=== PATIENT | female | born 1935 | race Caucasian/White ===

== ENCOUNTER 2018-01-08 10:23 | Inpatient (IN) | payer OTHER ==
[~2018-01-08] VITALS: Ht 162.6 cm; Wt 49.9 kg
--- NOTE | ~2018-01-08 | EKG ---
[address] [address] [place] [address] ELECTROCARDIOGRAM REPORT Name: ADRIANO BENJAMIN Room #: 407-P ADM IN M.R.#: [id number] Admission: 01/08/18 Attend Phys: Yves Mariee MD Discharge: Date of : 31 Report #: [id number] THIS REPORT FOR: //name// [facility] ED Test Date: 2018-01-08 Test Time: 11:49:37 Pat Name: ADRIANO BENJAMIN Department: Room: [facility] Gender: F Information Director: CLEVE : 1935 Requested By: Miguel Bullock Order Number: [id number] MD: Gibran Mata Measurements Intervals [place] Rate: 93 P: 74 [place]: 191 QRS: 27 QRSD: 112 T: 34 QT: 354 QTc: 441 Interpretive Statements Sinus arrhythmia Biatrial enlargement Poor R-wave progression Borderline low voltage, extremity leads Nonspecific ST segment abnormalities No previous ECG available for comparison Electronically Signed On 01-09-2018 12:19:36 POWER TECHNICIAN by Gibran Mata [email or web address] <ELECTRONICALLY SIGNED> By: Gibran Mata MD 01/09/18 1219 1149 1149 Gibran Mata MD /CHANELL
--- NOTE | ~2018-01-08 | O ---
[facility] [place] [address] OPERATIVE REPORT Name: ADRIANO BENJAMIN Room #: 407-P [facility] IN .R.#: [id number] Admission: 01/08/18 Attend Phys: Yves Mariee MD Discharge: Date of : 31 Report #: [id number] THIS REPORT FOR: //name// CC: Yves Menjivarpretty Fajardo DATE OF SERVICE: 01/09/2018 PREOPERATIVE DIAGNOSIS: Left femoral neck fracture. POSTOPERATIVE DIAGNOSIS: Left femoral neck fracture. PROCEDURE: Left proximal femoral hemiarthroplasty. SURGEON: Anjel Rodríguez MD INDICATIONS: This frail, but still independent 82-year-old female lives at home with some occasional family assistance. She fell injuring the left hip. X-rays confirm a displaced and unstable femoral neck fracture. We have elected to go ahead with surgical repair using a cemented hemiarthroplasty. DESCRIPTION OF PROCEDURE: The patient was taken to the operating room where she was placed under general anesthesia. Prophylactic intravenous antibiotics were administered. She was turned to the right lateral decubitus position. The left hip, thigh and leg were meticulously prepped and draped. A slightly curving posterolateral skin incision was made and carried through fascia to expose the posterior aspect of the hip joint. The short external rotators were taken down and tagged with several #1 Tevdek sutures. The hip was dislocated and an obvious unstable femoral neck fracture was identified. The neck was trimmed down to an appropriate level. The acetabulum was inspected and found to be intact without any evidence of fracture and only moderate degenerative cartilage damage. The canal was opened with reamers and hand broaches. The Monge and Nephew Hip System was utilized, a size 10 cemented stem seemed to fit most appropriately. A trial reduction was performed and a -3 mm neck length with a 48 mm head size seemed to fit most appropriately. With these trial components in position, the hip demonstrated good alignment, range of motion and stability. The trial components were removed. The femoral canal was once again irrigated. A cement restrictor was placed. Methyl methacrylate cement was mixed and injected into the canal. The Monge and Nephew size 10 collared, cemented, femoral component was selected. This was inserted, positioning this in about 20 degrees of anteversion, it was held securely as the cement hardened. A unipolar femoral head was then applied using a 48 mm head size and a -3 mm neck length. The hip was once again reduced and alignment, range of motion, stability and leg lengths were once again assessed and felt to be satisfactory. The short external rotators and capsule were repaired back using the #1 Tevdek sutures placed through small drill holes in the greater trochanter. This resulted in [facility] [address] [place] [address] OPERATIVE REPORT Name: ADRIANO BENJAMIN Room #: 407-P [facility] IN ..#: [id number] Admission: 01/08/18 Attend Phys: Yves Mariee MD Discharge: Date of : 33 Report #: [id number] significant improvement in overall hip stability. At this point, good hemostasis was noted and I did not feel a Hemovac drain was necessary. The wound was copiously irrigated. The fascia was then closed with multiple #1 Vicryl sutures. The subcutaneous tissues were closed with 0 Monocryl. The skin was closed with skin nat. A sterile dressing was applied. The patient was awakened and returned to recovery room in good condition. <ELECTRONICALLY SIGNED> By: Anjel Rodríguez MD 01/10/18 1035 1139 1216 Anjel Rodríguez MD /nt
--- NOTE | ~2018-01-08 | HC ---
[facility] [place] [address] CONSULTATION Name: ADRIANO BENJAMIN Room #: 407-P [facility] IN ..#: [id number] Admission: 01/08/18 Attend Phys: Yves Mariee MD Discharge: 01/13/18 Date of : 33 Report #: [id number] THIS REPORT FOR: //name// CC: Yves Mariee Kyle Fajardo DATE OF SERVICE: 01/12/2018 HISTORY OF PRESENT ILLNESS: An 82-year-old white female with history of hypertension, had a fall sustaining a left femoral neck fracture. She was noted to have rhabdomyolysis. She had confusion and some electrolyte abnormalities. She was noted to have a left proximal femoral neck fracture and underwent a hemiarthroplasty on 01/09/2018. She is allowed weightbearing as tolerated. We are seeing her in rehabilitation medicine consultation. PAST MEDICAL HISTORY: Includes hypertension, frequent nosebleeds. MEDICATIONS: Please see the full medication listing. ALLERGIES: INCLUDE ASPIRIN. SOCIAL HISTORY: Lives in an apartment alone, two steps in. Did not utilize gait aids. Has an involved daughter that does live in the [place] area. REVIEW OF SYSTEMS: She is noted to be legally blind. No focal complaints of chest pain, shortness of breath, abdominal discomfort. She does have chronic arthritic pain complaints. She is noted to have multi joint arthritis. PHYSICAL EXAMINATION: GENERAL: An 82-year-old thin white female, in no obvious distress. VITAL SIGNS: Last recorded temperature is 98.2, pulse 93, respirations 18, blood pressure 146/95. NEUROLOGIC: She is alert, pleasant, follows basic 1 step commands. Speech therapy is currently seeing her. She has had some confusion, but appears to be appropriate in answering basic questions at this time. Facies are symmetric. Functional range of motion of both upper extremities with strength grade 4-/5. DTRs are trace to 1. In her lower extremities, her left hip is dressed. There is no focal calf swelling. She can dorsiflex the left ankle. Right knee appears to have some tenderness suprapatellar. There is no focal calf swelling. Strength of the right lower extremity is probably a grade 3+ to 4-/5 and left lower extremity is somewhat difficult to assess. She has some difficulty with discomfort with movement at her hip. Functionally, she is max assist with sit to supine. She does have fair sitting balance. She has had a right knee x-ray as well, which showed a large suprapatellar joint effusion. ASSESSMENT: An 82-year-old white female with the following problem list: [address] [address] CONSULTATION Name: ADRIANO BENJAMIN Room #: [facility] IN ..#: [id number] Admission: 01/08/18 Attend Phys: Yves Mariee MD Discharge: 01/13/18 Date of : 33 Report #: [id number] 1. Left femoral neck fracture status post hemiarthroplasty, 01/09/2018. 2. Right knee large suprapatellar joint effusion. 3. Multi joint degenerative arthritis. 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 4. Rhabdomyolysis. 5. Confusion noted initially that appears to be improving. 6. Electrolyte abnormalities. 7. Legally blind. PLAN: Therapy evaluations are underway. We are assessing the patient regarding her tolerance for her rehabilitation therapies and we will be glad to assist regarding further recommendations. Insurance will need to be checked regarding her options. We will be glad to follow along with you. <ELECTRONICALLY SIGNED> By: Anjel Conley MD 01/14/18 1424 1050 1804 Anjel Conley MD /[facility]
--- NOTE | ~2018-01-08 | HC ---
[facility] [place] [address] CONSULTATION Name: ADRIANO BENJAMIN Room #: 407-P ADM IN M.R.#: [id number] Admission: 01/08/18 Attend Phys: Yves Mariee MD Discharge: Date of : 33 Report #: [id number] THIS REPORT FOR: //name// CC: Yves Mariee Kyle Fajardo DATE OF SERVICE: 01/08/2018 CHIEF COMPLAINT: Left hip fracture. HISTORY OF PRESENT ILLNESS: This frail 82-year-old female seems to be mildly confused, but I believe has been living fairly independently with some assistance from family. She apparently fell at home and was found today by family. It is uncertain when she fell and how long she was on the floor. She complains of left hip discomfort and no other areas of apparent injury. She was brought to [facility] where x-rays confirm a displaced fracture of the left femoral neck. No other apparent fractures or injuries are identified. At the time of my evaluation, the patient is reasonably alert and communicative, but mildly confused. She has no complaints aside from left hip pain. She seems to have satisfactory movement of the neck, back and both upper extremities without apparent discomfort. The right lower extremity also seems to be in good alignment and demonstrates good range of motion without discomfort. The left lower extremity is slightly shortened and mildly rotated and uncomfortable with any range of motion, suggesting a proximal femur fracture. Distal neurologic and vascular status appeared to be intact. X-rays of the pelvis and left hip reveal a fracture of the femoral neck with displacement. The remainder of the proximal femur appears to be intact and stable. The pelvis seems to be normal. There is evidence of [id number] degenerative arthritis of the hip joint. IMPRESSION: Left femoral neck fracture with displacement. I have discussed the issue at some length with the patient and her daughter who is here with her. I have explained various treatment options including nonsurgical management or surgical treatment with percutaneous screw stabilization or proximal femoral hemiarthroplasty. As the fracture is displaced and given her frail state and advanced age, I think surgical repair with hemiarthroplasty would be the best approach and will allow her the most rapid return to function. The patient and her daughter seemed to agree with this and would like to proceed with surgery whenever scheduling will allow. Pending medical clearance and OR scheduling, we may be able to proceed tomorrow and I will try to make those arrangements. We [address] [address] CONSULTATION Name: ADRIANO BENJAMIN Room #: 407-P [facility] IN [facility]#: [id number] Admission: 01/08/18 Attend Phys: Yves Mariee MD Discharge: Date of : 31 Report #: [id number] will plan for a cemented left total hip arthroplasty, which should allow her to advance activity and weightbearing fairly rapidly. <ELECTRONICALLY SIGNED> By: Anjel Rodríguez MD 01/09/18 0946 1647 15 Anjel Rodríguez MD /angie
[2018-01-08 10:25] VITALS: BP 159/72
[2018-01-08] MEDS ORDERED: COZAAR 50 MG TA50 M2 PO (10:30)
[2018-01-08] MEDS ORDERED: VITAMIN D3400 UNIT PO (10:34)
[2018-01-08 11:03] LABS: BASOPHILS 0.1 % (0.0-2.0); HEMATOCRIT 36.8 % (37.0-47.0); HEMOGLOBIN 12.4 gm/dL (12.0-15.0); LYMPHOCYTES 1.8 % (24.0-44.0); MCH 30.5 pg (26.0-34.0); MCHC 33.7 g/dL (28.0-37.0); MCV 90.6 fL (80.0-100.0); MONOCYTES 7.8 % (1.0-8.0); PLATELET COUNT 306 thou/uL (150-400); POLYS 90.3 % (36.0-66.0); RBC 4.06 mil/uL (4.20-5.00); RDW 13.4 % (10.5-14.5); WBC 15.5 thou/uL (4.0-11.0)
[2018-01-08 11:21] LABS: CALCIUM 9.9 mg/dL (8.5-10.1); CREATININE 0.7 mg/dL (0.6-1.0); POTASSIUM 3.1 mmol/L (3.5-5.1)
[2018-01-08 11:28] LABS: URINE BILIRUBIN 1+ (Negative); URINE BLOOD 1+ (Negative); URINE CLARITY CLEAR; URINE COLOR YELLOW; URINE GLUCOSE-RANDOM* NEGATIVE (Negative); URINE KETONES 2+ (Negative); URINE LEUKOCYTES-REFLEX NEGATIVE (Negative); URINE NITRITE-REFLEX NEGATIVE (Negative); URINE PROTEIN (DIPSTICK) 2+ (Negative); URINE SPECIFIC GRAVITY >= 1.030 (1.005-1.035); URINE UROBILINOGEN 0.2 E.U./dl (0.2-1.0)
[2018-01-08 11:30] LABS: ICTOTEST (BILI CONFIRMATORY) Negative (Negative)
[2018-01-08 11:40] LABS: SQUAMOUS 4-10 Moderate /LPF (0-3); URINE RBC 3-10 Few /HPF (0-2)
[2018-01-08 11:41] LABS: BACTERIA-REFLEX 1-9 Few /HPF (None Seen); CRYSTALS None Seen /LPF (None Seen); FINE GRANULAR CASTS 0-3 Few /LPF (None Seen); HYALINE CASTS 0-3 Few /LPF (None Seen); MUCUS >6 Heavy strn/LPF (None Seen); URINE WBC-REFLEX 0-5 Rare /HPF (0-5)
[2018-01-08 12:21] LABS: PROTIME 10.7 Seconds (9.3-11.4)
[2018-01-08 14:02] VITALS: BP 159/72
[2018-01-08 14:50] VITALS: BP 145/70
[2018-01-08 15:25] VITALS: BP 141/73
[2018-01-08 19:39] LABS: CHOLESTEROL 199 mg/dL (<200); HDL CHOLESTEROL 116 mg/dL (>40); LDL CHOLESTEROL 76 mg/dL (<100); TC:HDL 1.7 Ratio (Not establshd); TRIGLYCERIDE 35 mg/dL (<150); VLDL 7 mg/dL (<40)
[2018-01-08 19:49] LABS: SERUM ASSESSMENT Clear
[2018-01-08 20:00] VITALS: BP 130/57
[2018-01-08 20:05] LABS: TSH 0.664 uIU/mL (0.358-3.740)
[2018-01-08 20:33] LABS: FOLIC ACID > 40.0 ng/mL (8.6-58.9)
[2018-01-09] VITALS (8 sets, daily range): BP systolic 127–147; BP diastolic 48–81
[2018-01-09 05:40] LABS: ABSOLUTE NEUTROPHILS 9.3 thou/uL (1.4-8.2); BASOPHILS 0.2 % (0.0-2.0); HEMATOCRIT 31.5 % (37.0-47.0); HEMOGLOBIN 10.7 gm/dL (12.0-15.0); LYMPHOCYTES 4.5 % (24.0-44.0); MCH 30.9 pg (26.0-34.0); MCV 90.9 fL (80.0-100.0); MONOCYTES 10.5 % (1.0-8.0); PLATELET COUNT 251 thou/uL (150-400); POLYS 84.8 % (36.0-66.0); RBC 3.47 mil/uL (4.20-5.00); RDW 13.5 % (10.5-14.5)
[2018-01-09 06:01] LABS: CALCIUM 8.3 mg/dL (8.5-10.1); CREATININE 0.5 mg/dL (0.6-1.0); MAGNESIUM 1.8 mg/dL (1.8-2.4); POTASSIUM 3.4 mmol/L (3.5-5.1)
[2018-01-09 12:35] LABS: HEMOGLOBIN 11.3 gm/dL (12.0-15.0); MCH 30.6 pg (26.0-34.0); MCHC 33.3 g/dL (28.0-37.0); MCV 91.9 fL (80.0-100.0); RBC 3.7 mil/uL (4.20-5.00); RDW 13.7 % (10.5-14.5)
[2018-01-10 04:17] VITALS: BP 134/61
[2018-01-10 04:48] LABS: HEMATOCRIT 28.3 % (37.0-47.0); HEMOGLOBIN 9.6 gm/dL (12.0-15.0); MCHC 33.8 g/dL (28.0-37.0); MCV 91.6 fL (80.0-100.0); RBC 3.09 mil/uL (4.20-5.00); RDW 13.3 % (10.5-14.5); WBC 11.6 thou/uL (4.0-11.0)
[2018-01-10 05:08] LABS: ALBUMIN 2.4 g/dL (3.4-5.0); CALCIUM 8.2 mg/dL (8.5-10.1); CREATININE 0.5 mg/dL (0.6-1.0); POTASSIUM 3.8 mmol/L (3.5-5.1); TOTAL BILIRUBIN 0.4 mg/dL (<0.1-1.0); TOTAL PROTEIN 5.5 g/dL (6.4-8.2)
[2018-01-10 09:09] VITALS: BP 134/76
[2018-01-10 16:00] VITALS: BP 124/63
[2018-01-10 20:35] VITALS: BP 119/59
[2018-01-11 05:11] VITALS: BP 145/74
[2018-01-11 05:11] LABS: HEMATOCRIT 26.4 % (37.0-47.0); HEMOGLOBIN 9.1 gm/dL (12.0-15.0); MCH 31.2 pg (26.0-34.0); MCHC 34.2 g/dL (28.0-37.0); RBC 2.91 mil/uL (4.20-5.00); RDW 13.4 % (10.5-14.5); WBC 8.8 thou/uL (4.0-11.0)
[2018-01-11 05:19] LABS: CREATININE 0.4 mg/dL (0.6-1.0); POTASSIUM 4.1 mmol/L (3.5-5.1)
[2018-01-11 07:41] VITALS: BP 141/68
[2018-01-11 15:39] VITALS: BP 132/53
[2018-01-11 20:00] VITALS: BP 146/83
[2018-01-12] VITALS: BP 147/79
[2018-01-12 04:00] VITALS: BP 132/74
[2018-01-12 05:31] LABS: HEMATOCRIT 26.5 % (37.0-47.0); HEMOGLOBIN 8.9 gm/dL (12.0-15.0); MCH 30.7 pg (26.0-34.0); MCHC 33.8 g/dL (28.0-37.0); MCV 90.9 fL (80.0-100.0); RBC 2.91 mil/uL (4.20-5.00); RDW 13.7 % (10.5-14.5); WBC 6.2 thou/uL (4.0-11.0)
[2018-01-12 05:46] LABS: ALBUMIN 1.7 g/dL (3.4-5.0); CALCIUM 7.7 mg/dL (8.5-10.1); CREATININE 0.4 mg/dL (0.6-1.0); POTASSIUM 4.5 mmol/L (3.5-5.1); TOTAL BILIRUBIN 0.4 mg/dL (<0.1-1.0); TOTAL PROTEIN 4.8 g/dL (6.4-8.2)
[2018-01-12 08:14] VITALS: BP 146/95
[2018-01-12] MEDS ORDERED: TRAMADOL 50 MG50 MG PO (09:30)
[2018-01-12 15:33] VITALS: BP 328/83
[2018-01-12 20:00] VITALS: BP 118/66
[2018-01-13 04:00] VITALS: BP 155/70
[2018-01-13 07:53] VITALS: BP 150/84
[2018-01-13 11:30] VITALS: BP 116/59
== END 2018-01-13 15:00 | DRG 469 ==
LOC: ER 10:23 → 4N 11:59 → EROBS 11:59 → 4N 14:46
PROVIDERS: Hospitalist; Nurse Practitioner; Orthopaedic Surgery; Physician Assistant
PROC: 0SRS0J9 Replacement of Left Hip Joint, Femoral Surface with Synthetic Substitute, Cemented, Open Approach (ICD-10-PCS; principal; 2018-01-09)
DX: S72.002A Fracture of unspecified part of neck of left femur, initial encounter for closed fracture (principal); G93.40 Encephalopathy, unspecified; E43 Unspecified severe protein-calorie malnutrition; M62.82 Rhabdomyolysis; Z68.1 Body mass index [BMI] 19.9 or less, adult; I10 Essential (primary) hypertension; Z60.2 Problems related to living alone; M25.461 Effusion, right knee; H54.8 Legal blindness, as defined in USA; E86.0 Dehydration; E87.6 Hypokalemia; W18.39XA Other fall on same level, initial encounter; K59.00 Constipation, unspecified; D64.9 Anemia, unspecified; Z88.6 Allergy status to analgesic agent; Y93.89 Activity, other specified; Y92.89 Other specified places as the place of occurrence of the external cause; Y99.8 Other external cause status
CPT/HCPCS: 10790; 50010; 50101; 50382; 50414; 51057; 51130; 51225; 51412; 53000; 53369; 56521; 56525; 56527; 62110; 62900; 70005